=== PATIENT | male | born 1965 | race African-American/Black ===

== ENCOUNTER 2016-04-28 10:12 | Emergency (ER) | payer OTHER ==
--- NOTE | ~2016-04-28 | CR63 ---
[facility] A Service of [facility] & [facility] RADIOLOGY TEXT RESULTS PATIENT: STACEY NEWTON LOCATION: SED : 67 UNIT #: [id number] AGE: [address]: Tomás Schaefer MD SEX: M ORDER DR: [id number] [place], [place] [address] [id number] MR#: [id number] Acc #: [id number] NAME: STACEY NEWTON : 1965 SEX: M STUDY DATE/TIME: 04/28/2016 9:36 UNIT: SED ROOM: STUDY DESCRIPTION: CR Chest 2 View Attending Physician: Tomás Schaefer M.D. Ordering Physician: Tomás Schaefer M.D. Primary Care Physician: Primary Care Physician No MEDICAL IMAGING REPORT This report is preliminary unless electronic signature is present EXAM PA and lateral chest. 04/28/2016 HISTORY Cough for 3 days. FINDINGS Low lung volumes and some slight bibasilar opacity probably due to atelectasis but no consolidation or effusion. Allowing for inspiratory effort, heart size within normal limits. Dictated by... Cristian Menon M.D. THIS IS AN ELECTRONICALLY VERIFIED REPORT Cristian Menon M.D. at 04/29/2016 9:52 AM SAAD/josef TD: 04/28/2016 13:55 JOB #: [id number] MEDICAL IMAGING REPORT COPY
[~2016-04-28 10:12] MED LIST: [UNRECOGNIZED DRUG - OTHER]
[2016-04-28 10:15] LABS: BASOPHIL% 0.6 % (0.0-2.5); EOSINOPHIL# 0.1 X10e3 (0.0-0.7); EOSINOPHIL% 2.7 % (0.0-7.0); HEMATOCRIT 44.7 % (38.0-50.0); HEMOGLOBIN 15.2 gm/dl (13.0-17.0); LYMPHOCYTE# 0.7 X10e3 (1.0-3.5); LYMPHOCYTE% 18.6 % (17.0-45.0); MEAN CELL VOLUME 94.7 FL (83-96); MEAN CORPUSCULAR HEMOGLOBIN 32.3 PG (28-34); MEAN PLATELET VOLUME 8.3 FL (6.5-11.5); MONOCYTE# 0.4 X10e3 (0.0-1.0); MONOCYTE% 11.8 % (3.0-12.0); NEUTROPHIL# 2.6 X10e3 (1.5-7.1); NEUTROPHIL% 66.3 % (40.0-75.0); PLATELET COUNT 109 X10e3 (140-420); RED BLOOD COUNT 4.72 X10e6 (3.90-5.60); RED CELL DISTRIBUTION WIDTH 11.8 % (11.0-15.5); WHITE BLOOD COUNT 3.8 X10e3 (4.0-10.5)
[2016-04-28 10:16] LABS: DIFF IND NO
[2016-04-28 10:22] LABS: INFLUENZA A POS (NEG); INFLUENZA B NEG (NEG)
[2016-04-28 10:36] LABS: BUN/CREATININE RATIO 7.05; CALCIUM SERUM 8.7 mg/dL (8.4-10.2); CREATININE SERUM 1.7 mg/dL (0.6-1.4); GLOM FILT RATE Estimated 55.4 mL/min (>60); POTASSIUM 3.4 mmol/L (3.5-5.1)
== END 2016-04-28 11:30 | disposition home or self-care (01) ==
LOC: SED 10:12
PROVIDERS: Emergency Medicine
DX: J10.1 Influenza due to other identified influenza virus with other respiratory manifestations (principal)
CPT/HCPCS: 36415; 71020; 80048; 85025; 87804; 96361; 96374; 96375; 99284; J1885; J2405